=== PATIENT | female | born 1965 | race Caucasian/White ===

== ENCOUNTER → 2018-03-25 11:49 | Outpatient (CLI) | payer OTHER, SELFPAY ==
[2018-03-25 13:32] LABS: Follicle Stimulating Hormone 61.3 mIU/mL; Thyroid Stim Hormone (TSH) 3.59 uIU/mL (0.358-3.74)
[2018-04-02 14:07] LABS: HPV APTIMA, High Risk Negative (Negative)
== END ==
PROVIDERS: Family Provider Family Medicine; PCP Family Medicine; Referring Provider Nurse Practitioner Women's Health; Visit Provider Nurse Practitioner Women's Health
DX: Z12.4 Encounter for screening for malignant neoplasm of cervix (principal); R23.2 Flushing
CPT/HCPCS: 36415; 83001; 84443; 88175; G0145

== ENCOUNTER → 2018-09-04 16:10 | Outpatient (CLI) | payer OTHER, SELFPAY ==
--- NOTE | 2018-09-04 16:15 | MRI_ITS ---
STUDY: MRI RIGHT FOREFOOT WITHOUT CONTRAST REASON FOR EXAM: Female, 52 years old. TECHNIQUE: Standardized fat and water weighted pulse sequences were obtained in all 3 orthogonal planes. COMPARISON: None. FINDINGS: There is susceptibility artifact associated with hardware fusing the first, second, and third tarsometatarsal articulations. There is marrow edema with cortical thickening and periosteal reaction of the shaft of the second metatarsal, series 6 image 10 and 11. There is mild edema of the base of the fourth metatarsal, series 6 image 16 There is degenerative arthrosis of the metatarsophalangeal joint of the hallux. Normal tibial and fibular sesamoids, with normal sesamoids-first metatarsal articulations. Normal interphalangeal joint of the hallux. Mild edema of the proximal phalanx of the of the great toe. Normal medial and lateral heads of the flexor hallucis brevis tendons. Normal flexor and extensor hallucis longus tendons. Normal second through fifth metatarsophalangeal (MTP) joints. Normal interphalangeal joints of the second through fifth toes. Normal proximal, middle and distal phalanges of the second through fifth toes. Normal first through fourth intermetatarsal spaces. Normal flexor and extensor tendons of the second through fifth toes. Normal visualized metatarsi. Normal intrinsic muscles of the forefoot. There is no demonstrated soft tissue abnormality. MRI/Lower Ext/No Jt/w/o IMPRESSION: Stress fracture of the second metatarsal shaft. Stress injury of the proximal fourth metatarsal. Stress injury of the first proximal phalanx. Postoperative changes of the midfoot. Electronically Signed: Alexx Jarquin MD at 10:56 EDT , Service support ,
== END ==
PROVIDERS: Family Provider Family Medicine; PCP Family Medicine; Referring Provider Family Medicine; Visit Provider Family Medicine
DX: S90.31XA Contusion of right foot, initial encounter (principal)
CPT/HCPCS: 73718

== ENCOUNTER → 2018-09-29 06:55 | Outpatient (CLI) | payer OTHER, SELFPAY ==
--- NOTE | 2018-09-29 07:02 | CT_ITS ---
STUDY: CT RIGHT FOOT REASON FOR EXAM: Female, 52 years old. Right foot contusion. Foot reconstruction. RADIATION DOSAGE (If Supplied By Facility): CTDIvol = ( 15.35 ) mGy, DLP = ( 351.15 ) mGycm TECHNIQUE: Thin section transaxial imaging of the foot was obtained, with sagittal and coronal reconstructed images. Individualized dose optimization techniques were used for this CT. COMPARISON: MRI dated September 04, 2018. FINDINGS: Healing second metatarsal fracture (axial image 17 series 403). No additional new fracture lines. No acute dislocation. No acute cortical destruction. Status post right midfoot surgical fixation. Surgical screws transfix the medial cuneiform to the base of the first metatarsal. Complete osseous fusion at the medial cuneiform and first metatarsal base. Bony bridging at the region of the Lisfranc ligament (axial image 18 series 403). Surgical fixation at the second metatarsal base with osseous fusion to the middle cuneiform (axial image 17 series 403). Surgical fixation at the third metatarsal base with osseous fusion to the lateral cuneiform (axial image 22 series 403). Intact fourth and fifth tarsometatarsal articulations with minimal degenerative change. Dorsal spurring diffusely at the midfoot. Surgical hardware at the midfoot intact. Minimal loosening surrounds the surgical screws (example image 26 series 601). First digit intact with joint space narrowing at the first metatarsophalangeal and interphalangeal joints. Second digit intact. Third digit intact. Fourth digit intact. 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 Mild/moderate navicular cuneiform joint arthrosis. Normal talonavicular joint. Normal calcaneocuboid articulation. Tiny calcifications at the tibiotalar articulation posteriorly (sagittal image 15 series 601). Small plantar spur. Small Achilles enthesophyte. No significant soft tissue swelling. Normal visualized flexor and extensor tendons given CT technique. No significant joint effusions. CT/Extremity Lower without Contra IMPRESSION: Healing second metatarsal stress fracture No additional acute fracture lines or dislocations Multiple chronic midfoot fractures with surgical fixation and Lisfranc ligament calcifications Surgical hardware intact/well aligned with minimal loosening Complete osseous fusion of the first, second and third tarsometatarsal articulations Additional degenerative changes, as above Electronically Signed: Man Nicholas DO at 14:07 EDT Tel , Service support ,
== END ==
PROVIDERS: Family Provider Family Medicine; PCP Family Medicine; Referring Provider Family Medicine; Visit Provider Family Medicine
DX: S90.31XA Contusion of right foot, initial encounter (principal)
CPT/HCPCS: 73700

== ENCOUNTER → 2019-04-29 15:24 | Outpatient (CLI) | payer OTHER, SELFPAY ==
--- NOTE | 2019-04-29 | IMM_PTH ---
PATIENT: LUCIANA SCHMID LOC: [facility] U#:[id number] AGE/SX: 59/F ROOM: RE04/29/[address]: Dr. Popeye Dunn MD : 1965 BED: DIS: SPEC #: [id number] RECD: 05/03/19 12:17 STATUS: HANY REQ #: [id number] JERSON: 04/29/19 00:[address]: Popeye Dunn DEPT: IMMUNOHISTOCHEMISTRY RECD BY: Anju Cade ENTERED: 05/03/19 12:19 SP TYPE: IMMUNO OTHR DR: Dr. Issac Carreno III, MD Tissues: Skin of upper extremity and shoulder Procedures: SMA (add) CD31 (add) CK5-6 (add) DESMIN (add) INA (add) KI-67 (add) MACRO (add) Vimentin (add) SMM (add) FACTOR VIII (add) NEUROFIL (add) Pankeratin (initial) NSE (add) S-100 (add) PHYSIC[facility] INSTIT[facility] [address] [address] SPECIMEN INFORMATION: Tissue Source: Skin lesion, right shoulder blade, excision Clinical Info: Skin lesion, right shoulder blade Specimen Number: [id number] #3 CPT code: 61302, 48915 x13 METHODOLOGY: Deparaffinized sections of prefer/formalin-fixed tissue or PAP/DQ stained slides are incubated with monoclonal/polyclonal antibodies/oligonucleotide probes. Localization is made via biotin free immunoperoxidase method. Appropriate controls are performed and reacted as expected. Results on target cell population are indicated in the following table: RESULTS: ANTIBODY / CLONE RESULT Block 3 AE1-3 (AE1/AE3/PCK26) negative Vimentin (V9) positive CD31 (JAYME/70A) negative Factor VIII (R Ag) negative Macro (HAM-56) positive Actin (1A4) negative Myosin (simms1) negative Desmin (CE-R-11) negative S-100 (4C4.9) positive Neurofil (2F11) negative NSE Neuron Specific Enolase negative CK5-6 (D5 & 1684) negative INA (E29) negative Ki-67 (30-9) positive, low These tests were developed and their performance characteristics determined by [facility]. They may not have been cleared or approved by the [place]. Food and Drug Administration. The FDA has determined that such clearance or approval is not necessary. The above immunohistochemical/dualISH markers are ordered and reviewed by the Pathologist. INTERPRETATION: Skin lesion, right shoulder blade, excision: Consistent with neurofibroma. AM:mina 05/04/19 Case has been reviewed in consultation with Dr. Servin who concurs with the above diagnosis. IDC:[email or web address]
[2019-04-29 13:18] VITALS: BMI 22.8
--- NOTE | 2019-04-29 13:45 | LES_PTH ---
PATIENT: LUCIANA SCHMID LOC: [facility] U#:[id number] AGE/SX: 59/F ROOM: RE04/29/[address]: Dr. Popeye Dunn MD : 1965 BED: DIS: SPEC #: [id number] RECD: 04/29/19 15:01 STATUS: HANY MAIKEL #: [id number] JERSON: 04/29/19 13:[address]: Popeye Dunn DEPT: SURGICAL PATHOLOGY RECD BY: Balbir Glass ENTERED: 04/30/19 09:48 SP TYPE: Lesion OTHR DR: Dr. Issac Carreno III, MD Tissues: Skin of upper extremity and shoulder Procedures: Surgery Specimen Level IV HEADER OPERATION: Excision skin lesion right shoulder blade PRE-OP DIAGNOSIS: Skin lesion right shoulder blade L98.9 TISSUE SUBMITTED: Skin lesion right shoulder blade MICROSCOPIC DIAGNOSIS Soft tissue mass of right shoulder blade, excision: Consistent with neurofibroma with superficial ulceration and associated acute and chronic inflammation and granulation. See comment. AM:mina 05/03/19 COMMENT Immunohistochemistry ([id number]) supports the above diagnosis. Case has been reviewed in consultation with Dr. Servin who concurs with the above diagnosis. IDC:KELY MICROSCOPIC DESCRIPTION Slides are reviewed. GROSS DESCRIPTION Received is one container labeled with the patient's name and not further designated. The specimen consists of a piece of ponce-white skin measuring 2 x 1.2 cm and up to 1.8 cm in thickness. The specimen is inked, serially sectioned and submitted entirely in three cassettes. / KELY:mina 04/30/19 TC:1 CPT: 38749
== END ==
PROVIDERS: Family Provider Family Medicine; PCP Family Medicine; Referring Provider Surgery; Visit Provider Surgery
DX: L98.9 Disorder of the skin and subcutaneous tissue, unspecified (principal)
CPT/HCPCS: 88305; 88341; 88342

== ENCOUNTER → 2023-05-19 | Outpatient (CLI) | payer OTHER, SELFPAY ==
[2023-05-22 10:09] LABS: HPV APTIMA, High Risk Negative (Negative)
== END | disposition home or self-care (01) ==
LOC: LABSPEC 11:36
PROVIDERS: Referring Provider Nurse Practitioner Women's Health; Visit Provider Nurse Practitioner Women's Health
DX: Z12.4 Encounter for screening for malignant neoplasm of cervix (principal)
CPT/HCPCS: 87624; 88175; G0145